=== PATIENT | female | born 2005 | race Caucasian/White ===

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

== ENCOUNTER 2024-02-24 01:12 | Emergency (ER) | payer OTHER, SELFPAY ==
[2024-02-24 01:12] VITALS: BP 128/78; PULSE 93; RESP 16; TEMP 36.1; O2SAT 100; BMI 25.4
--- NOTE | 2024-02-24 01:34 | EDS_ITS ---
HPI History of Present Illness Chief Complaint: Ear Problem Informant: patient Narrative Narrative: 18-year-old female has had right earache started gradually about 1.5 weeks ago. She states it started while she was in the [facility] for about 5 days, they were snorkeling and lobstering. She was diving down about 8 or 9 feet [place], she was feeling the pressure from those dives, and during all of this is when she started having some mild pain in her right ear and trouble hearing out of it. This got worse when she got on an airplane to fly home, whenever she would be in the airport it was better but not resolved and then worse whenever she would go up in the next flight/connection. When she got home, which was about 6 days ago, she went to urgent care. She was told that it did not look normal but they provided no treatment. 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 She denies any cold symptoms prior to this, she denies any fevers or chills or otorrhea. [facility] Medical History Sinus tachycardia Chest pain in adult Tachycardia Subarachnoid hemorrhage Subdural hematoma Palpitations Aspiration into respiratory tract TBI (traumatic brain injury) Post concussion syndrome Concussion Home Medications ?Medication ?Instructions ?Recorded ?Last Taken ?Type amoxicillin 875 mg-potassium 875 mg PO Q12H #20 TABLETS 02/24/24 Unknown Rx clavulanate 125 mg tablet Allergy/AdvReac Type Severity Reaction Status Date / Time No Known Allergies Allergy Verified 02/24/24 01:13 Family History (Updated 11/29/21 @ 16:59 by Mirella Hinojosa) Grandmother Cancer Thyroid Grandmother Cancer Breast Other Atrial fibrillation Social History Smoking Status: Never smoker alcohol intake: never substance use type: does not use caffeine: Yes Type: coffee Number of servings: 2 ROS ROS ED Constitutional Constitutional ED: Denies chills or fever(s) Eyes Eyes: Denies change in vision or diplopia ENT ENT ED: Reports as per HPI and ear pain right; Denies disequillibrium, dizziness, headache(s), nasal congestion, nasal discharge, sore throat or tinnitus Respiratory/Chest Respiratory/Chest: Denies cough Integumentary Denies rash EXAM Physical Exam Const Vital Signs: 02/24/24 01:12 Temperature 97 F L Temperature Source Temporal Pulse Rate 93 Respiratory Rate 16 Blood Pressure 128/78 H Blood Pressure Mean 94 Pulse Ox 100 Positive well nourished and well developed Constitutional Narrative: well-appearing, nad General Appearance ED: well developed and NAD HEENT Reports moist mucous membranes HEENT Narrative: Left TM and EAC normal. Right EAC has some hard cerumen in it, but otherwise normal with no discomfort with manipulation of the pinna or tragus. The right tympanic membrane is erythematous with dulled light reflex. There is no perforation or otorrhea. No mastoid tenderness/swelling/erythema. Neck no lymphadenopathy and supple Resp normal respiratory effort Effort and Inspection: able to speak in complete sentences Neuro oriented x3, CN's II-XII intact bilaterally, no sensory deficits noted and gait normal Motor Exam: strength 5/5 throughout Psych mental status grossly normal Skin no rashes or lesions noted MDM MDM MDM Narrative Medical decision making narrative: At the time of my evaluation she appears to have acute otitis media. She probably had eustachian tube dysfunction due to pressure changes from diving that resulted in infection. I advised using nasal decongestions and/or steroids tried to resolve that while she is on the antibiotic to take care of the infection. She will follow-up if this does not result in resolution. Prescribed Augmentin. Discharge Plan Triage Chief Complaint: Ear Problem ED Provider: Nestor Perrin Dx/Rx/DC Orders Clinical Impression: Acute right otitis media Instructions: ED Otitis Media Adult Prescriptions: New amoxicillin-pot clavulanate 875-125 mg tablet 875 mg PO Q12H Qty: 20 0RF Primary Care Provider: Jasvir Johnson Referrals: Jasvir Johnson, DO [Primary Care Provider] - 3-5 Days if not improving Activity Restrictions/Additional Instructions: Get a decongestant nasal spray that contains phenylephrine or oxymetazoline, use as directed every 12 hours couple sprays each nostril for couple days. If this does not result in increasing your ability to hear in the right ear, then get a steroid nasal spray such as fluticasone or Nasacort/Flonase equivalent and use 1 spray each nostril daily for a week. Do this in addition to the antibiotic prescription use that until it is completed. Print Language: Iraqi Disposition Disposition: Home, Self Care
[2024-02-24] MEDS: Ibuprofen 600 MG Tablet PO (01:38)
[2024-02-24] MEDS: Amox/Clavulanate 875 MG Tablet PO (01:38)
== END 2024-02-24 01:47 | disposition home or self-care (01) ==
LOC: ED 01:42
PROVIDERS: Emergency Provider Emergency Medicine; PCP Student in an Organized Health Care Education/Training Program; Visit Provider Emergency Medicine
DX: H66.91 Otitis media, unspecified, right ear (principal)
CPT/HCPCS: 99283